=== PATIENT | male | born 2005 | race Caucasian/White ===

== ENCOUNTER 2023-09-19 21:53 | Emergency (ER) | payer SELFPAY ==
[2023-09-20] MEDS: Acetaminophen 325 MG Tab PO ONE (00:01)
== END 2023-09-20 03:06 | disposition home or self-care (01) ==
LOC: JD.ED 21:53
DX: S02.831A Fracture of medial orbital wall, right side, initial encounter for closed fracture (principal); S02.841A Fracture of lateral orbital wall, right side, initial encounter for closed fracture; S02.92XA Unspecified fracture of facial bones, initial encounter for closed fracture; F17.210 Nicotine dependence, cigarettes, uncomplicated; W22.8XXA Striking against or struck by other objects, initial encounter
CPT/HCPCS: 70450; 70486; 99284; A9270; 99283